=== PATIENT | female | born 1965 | race American Indian/Alaskan Native ===

== ENCOUNTER 2018-07-20 09:50 | Outpatient (CLI) | payer MEDICARE ==
--- NOTE | 2018-07-20 11:15 | Mammography Report ---
BILATERAL MAMMOGRAM: FINDINGS: The breast tissue is heterogeneously dense, which could obscure detection of small masses (approximately 50%-75% glandular). No mass, distortion, suspicious calcification, or skin change is seen. Prior surgery in the medial right breast. Compared to exam in 2014 prior to surgery there is diminished fibroglandular tissue in the area of surgery with an otherwise unchanged exam. CAD was utilized. IMPRESSION: Negative mammogram. There is no mammographic evidence of malignancy. RECOMMENDATION: Follow-up per ACS guidelines. BI-RADS CATEGORY: 1 = Negative ACR BI-RADS MAMMOGRAPHIC CODES: 0 = Needs additional imaging evaluation; 1 = Negative; 2 = Benign; 3 = Probably benign; 4 = Suspicious; 5 = Malignant; 6 = Known biopsy-proven malignancy COMMENT: 1. Dense breast tissue, i.e., adenosis, fibrocystic changes, etc., may obscure an underlying neoplasm. 2. Approximately 10% of cancers are not detected with mammography. 3. A negative mammography report should not delay biopsy if a clinically suspicious mass is present. COMMENT: Patient follow-up letters are generated in [facility].
== END 2018-07-20 09:51 | disposition home or self-care (01) ==
LOC: MAMMO 09:50
PROVIDERS: ATTEND Family Medicine
DX: Z12.31 Encounter for screening mammogram for malignant neoplasm of breast (principal); I10 Essential (primary) hypertension; E11.9 Type 2 diabetes mellitus without complications; E78.00 Pure hypercholesterolemia, unspecified
CPT/HCPCS: 77067

== ENCOUNTER 2021-03-27 10:25 | Outpatient (CLI) | payer MEDICARE ==
--- NOTE | 2021-03-27 12:51 | Ultrasound Report ---
BILATERAL DIGITAL DIAGNOSTIC MAMMOGRAM WITH CAD -- 03/27/2021 LEFT LIMITED BREAST ULTRASOUND INDICATION: Left breast palpable finding. Patient due for annual bilateral mammogram. TECHNIQUE: Digital bilateral mammographic imaging was performed. This examination was interpreted wi th the benefit of Computer-Aided Detection (CAD) analysis. COMPARISON: 07/20/2018, 05/05/2013. FINDINGS: Breast Density: The breasts are composed of scattered fibroglandular breast density. There is a triangular marker which overlies the left lateral breast. This gonzales the site of a reporte d palpable finding. There is slightly increased density in this region without discrete mass. Suspect ed mild architectural distortion is noted on the cc view. There are also fine pleomorphic calcificati ons in this region which span up to 3.7 cm. No suspicious findings within the right breast. A targeted ultrasound focused in the left breast at the 2:00 position, 7 cm from the nipple, was perf ormed to evaluate the site of a reported palpable finding. There is a poorly defined 5.3 x 4.2 x 1.6 cm hypoechoic area in this region. This does appear slightly different from the surrounding tissue an d there is faint posterior shadowing. A few hyperechoic foci noted in this region, likely representin g calcifications. This corresponds with the site of reported palpable finding which was noted during ultrasound evaluation. An ultrasound-guided core biopsy of this is recommended. IMPRESSION: Poorly defined left breast lesion at the 2:00 position for which ultrasound-guided core biopsy is rec ommended. Left breast calcifications are also noted in this region and appear to correspond the same location a s the sonographic finding. Attention to the location of the biopsy marker as well as the presence of calcifications noted pathologically. If the pathology results are found to be benign or do not contai n calcifications, stereotactic biopsy of the calcifications would be recommended. Findings and recommendations were discussed with the patient the conclusion of the exam. BI-RADS Category 4: Suspicious for Malignancy. A "normal" or negative report should not discourage follow up or biopsy of a clinically significant f inding. A written summary of these findings will be mailed to the patient. The patient will be entered into a mammography reporting system which will generate a reminder letter for the patient's next appointmen t at the appropriate interval. FURTHER INFORMATION: According to the [employer], yearly mammograms are recommend ed starting at age 40 and continuing as long as a woman is in good health. Breast MRI is recommended for women with an approximately 20-25% or greater lifetime risk of breast cancer, including women wi th a strong family history of breast or ovarian cancer and women who have been treated for Hodgkin's disease. Signer Name: Ronny Barrientos MD Signed: 03/27/2021 12:47 PM Workstation Name: [id number]
--- NOTE | 2021-03-27 13:58 | Ultrasound Report ---
ULTRASOUND-GUIDED CORE NEEDLE BIOPSY Left BREAST WITH CLIP PLACEMENT INDICATION: Poorly defined lesion within the left breast at the 2:00 position. FINDINGS: Informed consent was obtained. The poorly defined lesion within the left breast at the 2:00 position, 7 cm from the nipple, was identified with ultrasound. The overlying skin was cleansed with chloro pr ep and local anesthesia was obtained with a 1% lidocaine solution. Under ultrasound guidance a 14-gau ge spring loaded core biopsy needle was advanced to the lesion. A total of 5 core samples were obtain ed. A U-shaped biopsy marker was placed to barbara the site of the biopsy. Specimen samples were placed in formalin and sent to pathology for analysis. Patient tolerated the procedure well and no immediate complications were identified. A post procedure mammogram demonstrates accurate placement of the biopsy marker. IMPRESSION: Technically successful ultrasound-guided core biopsy of left breast lesion at the 2:00 position with placement of a U-shaped biopsy marker. An addendum will be added to this report once pathology results are available. Please see diagnostic mammogram and ultrasound report dated 03/27/2021 for findings regarding calcifications with recommend ations based upon the pathology results. Signer Name: Ronny Barrientos MD Signed: 03/27/2021 1:54 PM Workstation Name: [id number]
--- NOTE | 2021-03-27 14:01 | Mammography Report ---
LEFT DIAGNOSTIC MAMMOGRAM INDICATION: Status post biopsy left breast at the 2:00 position. COMPARISON: 03/27/2021. FINDINGS: Left breast CC and ML projections were obtained. These document a U-shaped biopsy marker at the site of recent ultrasound-guided core biopsy of the 2:00 position. The biopsy marker does appear to be in the region of the calcifications. A note was made to the pathologist to specifically commen t on the presence of calcifications within the sample. IMPRESSION: Left breast mammograms documenting accurate location of a U-shaped biopsy marker at the site of recen t ultrasound-guided core biopsy of the 2:00 position. This does appear to be in the region of the jana notic calcifications BI-RADS Category 4: Suspicious for Malignancy. Signer Name: Ronny Barrientos MD Signed: 03/27/2021 1:56 PM Workstation Name: [id number]
== END 2021-03-27 10:26 | disposition home or self-care (01) ==
LOC: US 10:25
PROVIDERS: ATTEND Family Medicine
DX: N63.20 Unspecified lump in the left breast, unspecified quadrant (principal); N63.25 Unspecified lump in the left breast, overlapping quadrants; N64.1 Fat necrosis of breast; R92.8 Other abnormal and inconclusive findings on diagnostic imaging of breast; Z79.899 Other long term (current) drug therapy; Z98.890 Other specified postprocedural states
CPT/HCPCS: 77066; 88305